=== PATIENT | female | born 1975 | race Caucasian/White ===

== ENCOUNTER 2016-09-20 14:49 | Outpatient (CLI) | payer OTHER ==
[~2016-09-20 14:49] MED LIST: FLUOXETINE HCL20 MG PO; HYCET1 ML PO; LISINOPRIL/HYDR1 TA2 PO; SIMVASTATIN20 MG PO; TERBINAFINE HC250 MG PO
--- NOTE | 2016-09-20 16:38 | DIAGNOSTIC IMAGING REPORT ---
PROCEDURE: US COMPLETE PELVIC INDICATION: MENOMETRORRHAGIA TECHNIQUE: Transabdominal and endovaginal lacy scale and color Doppler sonographic images of the female pelvis were obtained. COMPARISON: None. FINDINGS: TRANSABDOMINAL SCANS: Anteverted uterus measures The visible portion of the urinary bladder is normal. No significant free pelvic fluid. TRANSVAGINAL SCANS: Uterus measures 6.1 x 4.2 x 3.5 cm. Myometrium is unremarkable. Prior scar anteriorly. Endometrium measures 12 mm with some focal vascularity. The left ovary measures 2.2 x 1.9 x 2.6 cm with a 1.1 cm follicle. Right ovary measures 3.8 x 2.2 x 2.8 cm with multiple follicles. There is vascular flow to both ovaries. There is no adnexal mass or free fluid in the cul-de-sac. IMPRESSION: 1. Focal vascularity of the endometrium, possibly a polyp. Recommend WORD PROCESSOR OPERATOR consultation. 2. Normal myometrium
--- NOTE | 2016-09-20 16:38 | DIAGNOSTIC IMAGING REPORT ---
PROCEDURE: US COMPLETE PELVIC INDICATION: MENOMETRORRHAGIA TECHNIQUE: Transabdominal and endovaginal lacy scale and color Doppler sonographic images of the female pelvis were obtained. COMPARISON: None. FINDINGS: TRANSABDOMINAL SCANS: Anteverted uterus measures The visible portion of the urinary bladder is normal. No significant free pelvic fluid. TRANSVAGINAL SCANS: Uterus measures 6.1 x 4.2 x 3.5 cm. Myometrium is unremarkable. Prior scar anteriorly. Endometrium measures 12 mm with some focal vascularity. The left ovary measures 2.2 x 1.9 x 2.6 cm with a 1.1 cm follicle. Right ovary measures 3.8 x 2.2 x 2.8 cm with multiple follicles. There is vascular flow to both ovaries. There is no adnexal mass or free fluid in the cul-de-sac. IMPRESSION: 1. Focal vascularity of the endometrium, possibly a polyp. Recommend SENIOR JAVA DEVELOPER consultation. 2. Normal myometrium
[2016-10-12] MEDS ORDERED: METFORMIN HCL500 MG PO (10:35)
== END 2016-09-20 23:00 ==
LOC: US SRH 14:49
DX: N92.1 Excessive and frequent menstruation with irregular cycle (principal)

== ENCOUNTER 2016-10-11 16:43 | Outpatient (CLI) | payer OTHER ==
[2016-10-12] MEDS ORDERED: METFORMIN HCL500 MG PO (10:35)
== END 2016-10-11 23:00 ==
LOC: LAB SRH 16:43
DX: N93.9 Abnormal uterine and vaginal bleeding, unspecified (principal)
CPT/HCPCS: 90001; 90047; 90074; 90155; 90364; 91004; 92863; 95059; 98428

== ENCOUNTER 2016-10-13 08:23 | Day surgery (SDC) | payer OTHER ==
[~2016-10-13] VITALS: Ht 152.4 cm; Wt 102.0 kg
[~2016-10-13 08:23] MED LIST changes: +METFORMIN HCL500 MG PO
--- NOTE | 2016-10-13 09:05 | NUR ---
PATIENT ASSESSMENT AND MED/ALLERGY REVIEW COMPLETE. VITALS STABLE. IV STARTED IN R HAND WITH 1 ATTEMPT. PREOP INSTRUCTIONS DISCUSSED. QUESTIONS ENCOURAGED AND ANSWERED BY RN. WILL CONTINUE TO MONITOR.
--- NOTE | 2016-10-13 13:04 | Postoperative Progress Note ---
Postop Progress Note Preoperate Diagnosis: 1. AUB 2. Intrauterine polyps Postoperative Diagnosis: 1. AUB 2. Intrauterine Polyps Surgeon: Terri Lawson MD Anesthesia: General LMA Findings: 1. Endometrial polyps 2. Failed cavity assessment, so inability to perform ablation Procedure: 1. Hysteroscopy, Dilation and Curettage 2. Failed Novasure endometrial ablation Complications? No Condition: Good EBL: 20cc Blood Administered: No Specimen(s) removed? Yes (Endometrial curettings) Grafts or Implants? No . (See nursing notes for details of grafts/implants)
--- NOTE | 2016-10-13 13:05 | Operative Report ---
Operative Report Date of Surgery: 10/13/16 Preoperate Diagnosis: 1. AUB 2. Endometrial polyp on u/s Postoperative Diagnosis: 1. AUB 2. Endometrial polyp on u/s Surgeon: Terri Lawson MD Procedure Performed: 1. Hysteroscopy, Dilation and Curettage 2. Novasure endometrial ablation (attempted, not successful) Anesthesia: General LMA Indications: AUB Surgical Technique: The patient was taken to the operating room where general anesthesia was administered with the use of an LMA. The patient was then placed in dorsal lithotomy position and her vagina was prepped and draped in the normal sterile fashion. Her bladder was drained with a straight in and out catheter. A time out was performed. A weighted speculum was then placed in the posterior aspect of the vagina and a right angle retractor was used to visualize the cervix. The cervix was then grasped at the 12 o'clock position using a single-tooth tenaculum. The cervix was then dilated up to 8 [place] using Hegar dilators. The dilation of the cervix itself was somewhat difficult between 6 and 8 [place]. The uterus was sounded to 10 cm, with a cervical length of 4 cm. Hysteroscopy was performed, and showed multiple endometrial polyps. Sharp curettage was then performed, and the specimens were sent to pathology labeled as endometrial curettings. The NovaSure device was then taken from its package. After assuring that the device itself would open appropriately, it was placed through the cervical os up to the level of the fundus. The device was then engaged and rotated 45 clockwise and counterclockwise to measure cavity width. This was a 4.5 cm. The NovaSure device was then started for the initial check, however it did not pass. Attempts to help provide adequate seal were performed including moist gauze around the device, a second tenaculum on the uterus, and even the use of a new device. The second device failed to appropriately measure the width of the cavity. Due to these complications decision was made to abort the ablation portion of the procedure. The tenaculum was then taken off of the the cervix and all retractors were removed from the vagina. The patient was placed back in supine position, awoken from general anesthesia, and taken to the PACU in stable condition. All sponge lap and needle counts were correct x2.
[2016-10-13] MEDS ORDERED: NORCO1 TA1 PO (13:07)
[2016-10-13] MEDS ORDERED: IBUPROFEN600 MG PO (13:08)
--- NOTE | 2016-10-13 13:11 | Provider's Discharge Care Plan ---
Problem, Goal, Plan Problem List 1. Post-op pain Goals: Improve function, No readmissions Instructions: Follow up as directed, Increase activity level, Take meds as directed
--- NOTE | 2016-10-13 13:11 | Provider's Discharge Care Plan ---
Problem, Goal, Plan Problem List 1. Post-op pain Goals: Improve function, No readmissions Instructions: Follow up as directed, Increase activity level, Take meds as directed
--- NOTE | 2016-10-13 13:21 | NUR ---
REC'D FROM OR; SPONT RESP. DR. TILLMAN HERE TALKING TO PT RE FINDSING. PT CRYING AND REPORTS CRAMPING. PAIN MEDS GIVEN.
--- NOTE | 2016-10-13 14:14 | NUR ---
ANESTHESIA HERE. PT CONTINUES TO C/O 02/02 OP SITE PAIN. DEMEROL GIVEN...PT SLEEPING QUIETLY.
--- NOTE | 2016-10-13 14:38 | NUR ---
PATIENT BACK FROM OR. VITALS STABLE. PATIENT COMPLAINT OF PAINFUL CRAMPING. PATIENT OFFERED WATER AND CRACKERS- TOLERATING WITHOUT NAUSEA. WILL CONTINUE TO MONITOR.
--- NOTE | 2016-10-13 16:20 | NUR ---
PATIENT TRANSFERRED TO CCU. HANDOFF REPORT GIVEN TO ERMELINDA NUÑEZ. PATIENT'S VITALS STABLE. PATIENT SLEEPING.
[2016-10-13 16:21] VITALS: BP 109/61
--- NOTE | 2016-10-13 16:26 | NUR ---
Received patient to floor from Day Surgery. Patient sleeping. Patient does wake for vitals but goes right back to sleep. Will continue to monitor patient.
[2016-10-13 17:14] VITALS: BP 118/59
--- NOTE | 2016-10-13 19:48 | NUR ---
Pt alert and stable. VSS, no N/V, voided in BR, ambulated, IV site D/C intact. All discharge instructions explained/understood/given to pt and aunt. All questions answered. Pt discharged via w/c pt's aunt provided transportation.
== END 2016-10-13 19:45 | disposition home or self-care (01) ==
LOC: OR SRH 08:23 → OB SRH 08:26 → OR SRH 10:15 → CC SRH 16:22 → OR SRH 19:45
PROVIDERS: Obstetrics & Gynecology
PROC: 0UDB8ZX Extraction of Endometrium, Via Natural or Artificial Opening Endoscopic, Diagnostic (ICD-10-PCS; principal; 2016-10-13 10:15)
DX: N93.9 Abnormal uterine and vaginal bleeding, unspecified (principal); N84.0 Polyp of corpus uteri; I10 Essential (primary) hypertension; E11.9 Type 2 diabetes mellitus without complications; Z79.84 Long term (current) use of oral hypoglycemic drugs; J45.909 Unspecified asthma, uncomplicated